=== PATIENT | female | born 1965 | race Caucasian/White ===

== ENCOUNTER → 2017-04-08 | Outpatient (REF) ==
[2017-04-08 19:39] LABS: THYROID STIMULATING HORMONE 1.95 uIU/mL (0.465-4.680)
== END ==
LOC: ZLAB.WCH 18:44
PROVIDERS: Nurse Practitioner Family
DX: Z01.89 Encounter for other specified special examinations (principal)

== ENCOUNTER 2017-06-01 13:26 | Outpatient (RCR) | payer OTHER | END 2017-07-14 08:01 | LOC: WSOH 13:26 | DX: M54.5 Low back pain (principal); R20.2 Paresthesia of skin; X50.0XXA Overexertion from strenuous movement or load, initial encounter; Y99.0 Civilian activity done for income or pay ==

== ENCOUNTER 2021-09-28 17:45 | Emergency (ER) | payer BC ==
[~2021-09-28] VITALS: Ht 165.1 cm; Wt 61.4 kg
[2021-09-28 18:52] LABS: BASO % 0.3 % (0.0-2.0); EOS # 0.2 K/mm3 (0.0-0.7); EOS % 1.7 % (0-4.0); GRAN # 9.5 K/mm3 (1.4-6.5); GRAN % 79.1 % (42.2-75.2); HEMATOCRIT 41.4 % (37.0-47.0); HEMOGLOBIN 13.9 g/dl (12.5-16.0); LYMPH # 1.7 K/mm3 (1.2-3.4); LYMPH % 13.9 % (20.0-51.0); MEAN CELL VOLUME 94 fl (80.0-100.0); MEAN CORPUSCULAR HEMOGLOBIN 32 pg (27.0-31.0); MEAN CORPUSCULAR HGB CONC 34 g/dl (33.0-37.0); MEAN PLATELET VOLUME 9.8 fl (7.4-10.4); MONO # 0.6 K/mm3 (0.1-0.6); MONO % 4.7 % (1.7-9.3); PLATELET COUNT 268 K/mm3 (130-400); RED BLOOD COUNT 4.39 M/mm3 (4.10-5.30); REDCELL DISTRIBUTION WIDTH-CV 12.3 % (11.5-14.5)
[2021-09-28 19:08] LABS: CALCIUM 9.6 mg/dL (8.4-10.2); CREATININE, serum 0.95 mg/dL (0.57-1.11); POTASSIUM 3.9 mmol/L (3.5-4.5)
[2021-09-28] MEDS ORDERED: NORCO 325 MG-51 TAB PO ×2 (21:48→22:34)
[2021-09-28 22:26] VITALS: BP 136/88; PULSE 77; TEMP 97.9
== END 2021-09-28 22:29 | disposition home or self-care (01) ==
LOC: COL.ER 17:45
PROVIDERS: Student in an Organized Health Care Education/Training Program
DX: S42.011A Anterior displaced fracture of sternal end of right clavicle, initial encounter for closed fracture (principal); V80.010A Animal-rider injured by fall from or being thrown from horse in noncollision accident, initial encounter
CPT/HCPCS: J1885; J2060; Q9967